=== PATIENT | female | born 1980 | race Caucasian/White ===

== ENCOUNTER 2017-01-14 09:22 | Emergency (ER) | payer OTHER ==
[2017-01-14 10:14] LABS: BASOPHIL 0.2 % (0-2); EOSINOPHIL 0.4 % (0-5); HCT 45.6 % (37.0-47.0); HGB 15.7 g/dl (12.5-16.0); LYMPHOCYTE 26.2 % (15-48); MCH 31.2 pg (25.0-31.0); MCHC 34.4 g/dL (32.0-36.0); MCV 90.5 fL (78.0-100.0); MONOCYTE 4.7 % (0-12); MPV 10.7 fL (6.0-9.5); NEUTROPHIL 68.5 % (41-80); PLT 294 K/uL (150-400); RBC 5.04 M/uL (4.20-5.40); RDW 13.4 % (11.5-14.0)
[2017-01-14 10:18] LABS: ALBUMIN 4.6 g/dL (3.5-5.0); BILIRUBIN - TOTAL 0.5 mg/dL (0.1-1.0); CREATININE 0.8 mg/dL (0.5-1.0); POTASSIUM 4.3 mmol/L (3.5-5.1); TOTAL PROTEIN 7.6 g/dL (6.4-8.3)
[2017-01-14 10:19] LABS: WBC 19.9 K/uL (4.0-10.5)
[2017-01-14 11:07] LABS: BILIRUBIN NEGATIVE (NEGATIVE); BLOOD NEGATIVE Ery/uL (NEGATIVE); CLARITY CLEAR (CLEAR); COLOR YELLOW (YELLOW); GLUCOSE (U) NORMAL (NORMAL); KETONE (U) NEGATIVE (NEGATIVE); LEUKOCYTES NEGATIVE Leu/uL (NEGATIVE); NITRITE NEGATIVE (NEGATIVE); PROTEIN NEGATIVE (NEGATIVE); SPECIFIC GRAVITY 1.025 (1.001-1.030); UROBILINOGEN 0.2 mg/dL (0.2-1.0)
== END 2017-01-14 12:22 | disposition home or self-care (01) ==
LOC: FER 09:22
PROVIDERS: Emergency Medicine
DX: R10.11 Right upper quadrant pain (principal); R19.7 Diarrhea, unspecified; R82.90 Unspecified abnormal findings in urine; F17.210 Nicotine dependence, cigarettes, uncomplicated
CPT/HCPCS: 36415; 76705; 80053; 81003; 83690; 85025; 87040; 87088; Q9967